=== PATIENT | female | born 1980 | race Caucasian/White ===

== ENCOUNTER → 2017-10-20 | Outpatient (CLI) | payer SELFPAY ==
[2015-03-02 21:22] VITALS: BP 129/90
[2017-10-20 10:48] LABS: FREE T4 (FREE THYROXINE) 0.93 ng/dL (0.76-1.46); TSH (3RD GENERATION) 3.745 uIU/mL (0.358-3.74)
--- NOTE | 2017-10-20 11:12 | US ---
HISTORY: Hyperthyroidism, left-sided neck swelling Study: Ultrasound of the thyroid gland Comparison: None Technique: Multiple savage scale images of the thyroid were obtained. Findings: The right lobe of the thyroid measures 3 x 1.2 x 2.3 cm. The left lobe measures 3.4 x 1.4 x 2.3 cm. T he isthmus measures 3 mm. The gland appears diffusely heterogeneous in echotexture with hypervascular ity and mildly irregular borders. No focal cystic or solid nodules are identified. IMPRESSION: 1. Heterogeneous and diffusely hypervascular thyroid gland that may reflect underlying thyroiditis. The gland is normal in size without focal cystic or solid nodule identified. Reported By:
== END ==
LOC: RAD 09:45
PROVIDERS: ATTEND Psychiatry & Neurology Neurology
DX: Z86.39 Personal history of other endocrine, nutritional and metabolic disease (principal)
CPT/HCPCS: 36415; 76536; 84436; 84439; 84443; 84481